=== PATIENT | male | born 1955 | race Two or more races ===

== ENCOUNTER 2017-10-11 18:04 | Emergency (ER) | payer MEDICAID ==
[~2017-10-11] VITALS: Ht 167.6 cm; Wt 73.5 kg
[2017-10-11 19:20] LABS: Basophils # (auto) 0.1 uL; Eosinophils # (auto) 0.2 uL; Hemoglobin 14.5 g/dL (13.5-17.5); Lymphocytes # (auto) 0.5 uL; Monocytes # (auto) 0.4 uL; Red Cell Distribution Width 14.5 % (11.8-14.3)
[2017-10-11 19:39] LABS: Basophils % (auto) 1.2 % (0.0-2.0); Eosinophils % (auto) 4.4 % (0.0-7.0); Lymphocytes % (auto) 10.1 % (10.0-50.0); Monocytes % (auto) 7.3 % (0.0-12.0)
[2017-10-11 19:40] LABS: Hematocrit 40.9 % (41.0-53.0); Mean Corpuscular Hemoglobin 33.9 pg (28.0-32.0); Mean Corpuscular Volume 95.7 fL (80.0-100.0); Neutrophils # (auto) 3.9 uL; Nucleated Red Blood Cells % 0.1 %; Red Blood Cells 4.27 10^6/uL (4.5-5.90)
[2017-10-11 19:41] LABS: Mean Corpuscular Hgb Conc. 35.4 g/dL (32.0-36.0); Platelet Count (auto) 50 10^3/uL (140-450)
[2017-10-11 19:44] LABS: Albumin 3.1 g/dL (3.4-5.0); BUN/Creatinine Ratio 13.5; Bilirubin, Total 1.6 mg/dL (0.2-1.0); Calcium 8.3 mg/dL (8.5-10.1); Potassium 4.7 mmol/L (3.5-5.1); Total Protein 8.5 g/dL (6.4-8.2)
[2017-10-11] MEDS ORDERED: ONDANSETRON HCL 4 MG/2 ML VIAL IV ONE (21:30)
[2017-10-11] MEDS ORDERED: MORPHINE SULFATE 4 MG/ML SYR/VIAL IV ONE (21:30)
[2017-10-11] MEDS ORDERED: HYDROcodone-ACET 10/325MG TAB PO ONE (21:30)
[2017-10-11] MEDS ORDERED: SODIUM CHLORIDE 0.9% 1,000 ML IV ONE (21:30)
[2017-10-11 23:20] VITALS: BP 150/84
== END 2017-10-11 23:23 | disposition home or self-care (01) ==
LOC: ER 18:04
DX: S09.90XA Unspecified injury of head, initial encounter (principal); E11.65 Type 2 diabetes mellitus with hyperglycemia; R18.8 Other ascites; K74.60 Unspecified cirrhosis of liver; W22.8XXA Striking against or struck by other objects, initial encounter; Y93.89 Activity, other specified; Y99.8 Other external cause status; Y92.89 Other specified places as the place of occurrence of the external cause
CPT/HCPCS: 36415; 70450; 80053; 82010; 85025; 96361; 96374; 96375; 99285; J2270; J2405; J7030

== ENCOUNTER 2018-02-16 03:43 | Inpatient (IN) | payer MEDICAID | END 2018-02-18 13:45 | disposition home or self-care (01) | LOC: ER 03:43 → TELE 08:22 → TELE-CENTR 20:35 | DX: A41.9 Sepsis, unspecified organism (principal); E11.11 Type 2 diabetes mellitus with ketoacidosis with coma; J18.9 Pneumonia, unspecified organism; D69.6 Thrombocytopenia, unspecified; I11.0 Hypertensive heart disease with heart failure; E11.65 Type 2 diabetes mellitus with hyperglycemia; I50.9 Heart failure, unspecified; R65.20 Severe sepsis without septic shock; K72.10 Chronic hepatic failure without coma; R18.8 Other ascites; Z85.118 Personal history of other malignant neoplasm of bronchus and lung ==